=== PATIENT | female | born 1995 | race African-American/Black ===

== ENCOUNTER 2016-10-11 02:05 | Emergency (ER) | payer OTHER ==
[2016-10-11] MEDS ORDERED: NS 1000 ML 1,000 ML ONE (02:16)
[2016-10-11 02:17] VITALS: BP 109/80; BMI 23.0
[2016-10-11] MEDS ORDERED: TETRACAINE HCL ONE (02:17)
[2016-10-11] MEDS ORDERED: FUL-GLO STRIP ONE (02:50)
[2016-10-11] MEDS ORDERED: GENTAMICIN SULF (OPHTH) ONE (03:01)
--- NOTE | 2016-10-11 03:18 | DR.GENAD ---
HPI - PCP Primary Care Physician: nfd - HPI Comment HPI Comment: EYE FLUSH WITH TAP WATER BEFORE COMING FOR 45MINS. - Complaint/Symptoms Chief Complaint Doctors Comments: [employer] WENT INTO LEFT EYE AT WORK. SEVERE PAIN LEFT EYE. Chief Complaint:: was at work and got 2 different types of chemical in her eye. they did flush her eyes with water - Nurses notes reviewed Nurses Notes Review: Yes - Source History Provided: Patient - Mode of Arrival Mode of Arrival: Ambulatory - Timing Onset of Chief Complaint: 10/11/16 Came on: Suddenly - Duration Duration: Constant Duration: Hours - Severity Severity: Moderate PMH - PMH Past Medical History: No Past Medical History: Migraines Past Surgical History: No Surgical History: - Family History History of Family Medical Conditions: No Family Medical History: Hypertension - Social History Does patient currently use any type of tobacco product: Yes Have you used tobacco products in the last 12 months: Yes Type of Tobacco Use: Cigarettes How many years tobacco product used: 1 Does any household member use tobacco: No Alcohol Use: None Do you use any recreational Drugs:: No Lives With: Family Lives Where: Home - infectious screening In the last 2 months have you had wt loss of >10#?: NO Have you had fever, night sweats or hemotysis?: No Have you traveled outside the country in the last 6 months?: No Isolation: Standard ROS - Review of Systems Constitutional: No Symptoms Reported Eyes: Eye Pain, Blurred Vision, Tearing, Photophobia ENTM: No Symptoms Reported Respiratoy: No Symptoms Reported Cardiovascular: No Symptoms Reported Gastrointestinal/Abdominal: No Symptoms Reported Genitourinary: No Symptoms Reported Neurological: No Symptoms Reported Musculoskeletal: No Symptoms Reported Integumentary: No Symptoms Reported Hematologic/Lymphatic: No Symptoms Reported Endocrine: No Symptoms Reported All Other Systems: Reviewed and Negative PE - Vital Signs Vitals: Pulse Rate 85 Respiratory Rate 16 Blood Pressure [Left Arm] 117/71 Blood Pressure 109/80 O2 Sat by Pulse Oximetry 100 - General Limitations: No Limitations General Appearance: Alert - Head Head Exam: Normal Inspection - Eyes Eye exam: PERRL (AFTER TETRACAINE), EOMI (AFTER TETRACAINE), Conjunctival Injection. negative: Scleral Icterus, Nystagmus - ENT ENT Exam: Normal External Ear Exam External Ear Exam: Normal External Inspection Throat Exam: Normal Inspection - Neck Neck Exam: Trachea Midline - Chest Chest Inspection: Symmetric Chest Wall Rise - Respiratory Respiratory Exam: Bilateral Clear to Auscultation - Cardiovascular Cardiovascular Exam: Regular Rate, Normal Rhythm, Normal Heart Sounds - Abdominal Exam Abdominal Exam: Normal Inspection - Extremities Extremities Exam: Normal Inspection - Back Back Exam: Normal Inspection - Neurologic Neurological Exam: Alert, Oriented X3 - Psychiatric Psychiatric Exam: Anxious - Skin Skin Exam: Normal Color MDM - Differential Diagnosis Differential Diagnosis: CHEMICAL CONJUNCTIVITIS, CORNEA ABRSION Course - Treatment Treatment: SEE ORDERS. LT EYE IRRIGATED WITH 1 LITER NS THROUGH FRANCOIS MILIND IN ED. FLUORO DYE TEST, NO CORNEA ABRASION. - Education/Counseling Education/Counseling: Patient, Education Educated On: Diagnosis, Needs for Follow Up - Diagnosis Discharge Problem: Pain, eye, left Chemical conjunctivitis Qualifiers: Laterality: left Qualified Code(s): H10.212 - Acute toxic conjunctivitis, left eye - Discharge Plan Condition: Stable Prescriptions: Ibuprofen [MOTRIN TAB 600 MG *] 600 mg PO TID PRN #20 tab PRN Reason: Pain/Inflammation - Follow ups/Referrals Follow ups/Referrals: NFD,None [Primary Care Provider] - 3 days ANDREW CHACKO [STAFF PHYSICIAN] - 3 days - Instructions Instructions: Chemical Conjunctivitis, [id number] Additional Instructions: RETURN TO ED IF WORSE. USE GENTAMICINE OPHTHALMIC DROP ONE DROP 4 TIMES DAILY TILL ALL GONE. FOLLOW UP WITH EYE DOCTOR.
== END 2016-10-11 03:40 | disposition home or self-care (01) ==
LOC: ER 02:05
DX: H10.212 Acute toxic conjunctivitis, left eye (principal); H57.12 Ocular pain, left eye
CPT/HCPCS: 99000; 99282

== ENCOUNTER 2016-11-19 20:30 | Emergency (ER) | payer OTHER ==
[2016-11-19 20:35] VITALS: BP 111/81; BMI 23.0
--- NOTE | 2016-11-19 20:45 | DR.NAUSEAF ---
HPI - Time Seen Time seen: 20:45 - Primary Care Physician Primary Care Physician: YADIRA - HPI Comment HPI Comment: GETTING WORSE. NOT HOLDING DOWN FLUIDS. - Complaints Chief Complaint Doctors Comments: ABDOMINAL PAIN, N/V FOR SEVERAL HOURS. Chief Complaint:: N/V , ABD PAIN SINCE THIS MORNING AROUND 10 - Reviewed Nurses Notes Reviewed: Yes - Source History Provided: Patient - Mode of Arrival Mode of Arrival: Ambulatory - Timing Onset of Chief Complaint: 11/19/16 - Context Onset: Spontaneous Recent: Contact Exposure (SON HAD SIMILAR ILLNESS BEFORE SHE GOT SICK.) : No History of: None - Quality Quality: Bilious - Associated Signs and Symptoms Abdominal Pain Quality: Cramping Abdominal Pain Location: Diffuse Symptoms: Abdominal Pain PMH - PMH Past Medical History: Yes Past Medical History: Migraines Past Surgical History: Yes Surgical History: - Family History History of Family Medical Conditions: Yes Family Medical History: Hypertension - Social History Type of Tobacco Use: Cigarettes Alcohol Use: None Do you use any recreational Drugs:: No Lives With: Family Lives Where: Home - infectious screening Have you traveled outside the country in the last 6 months?: No Isolation: Standard ROS - Review of Systems Constitutional: Weakness, Fatigue, Loss of Appetite. negative: Chills, Fever Eyes: No Symptoms Reported. negative: Eye Pain, Discharge ENTM: No Symptoms Reported. negative: Ear Pain, Nose Discharge, Nose Congestion , Throat Pain Respiratoy: No Symptoms Reported. negative: Productive Cough, Non-Productive Cough, Short of Breath, Wheezing, Hemoptysis Cardiovascular: No Symptoms Reported. negative: Chest Pain Gastrointestinal/Abdominal: Abdominal Pain, Nausea, Vomiting Genitourinary: No Symptoms Reported. negative: Dysuria, Frequency, Hematuria Neurological: Weakness Musculoskeletal: Muscle Pain Integumentary: No Symptoms Reported Hematologic/Lymphatic: No Symptoms Reported Endocrine: No Symptoms Reported All Other Systems: Reviewed and Negative PE - Vital Signs Vitals: Temperature 98.9 F Pulse Rate 85 Respiratory Rate 16 Blood Pressure [Left Arm] 117/71 Blood Pressure 111/81 O2 Sat by Pulse Oximetry 99 - General Limitations: No Limitations General Appearance: Alert - Head Head Exam: Normal Inspection - Eyes Eye exam: Normal Appearance - ENT ENT Exam: Normal External Ear Exam - Neck Neck Exam: Normal Inspection - Chest Chest Inspection: Symmetric Chest Wall Rise - Respiratory Respiratory Exam: Normal Lung Sounds Bilat Respiratory Exam: Bilateral Clear to Auscultation - Cardiovascular Cardiovascular Exam: Regular Rate, Normal Rhythm, Irregular Rhythm - Abdominal Exam Abdominal Exam: Normal Bowel Sounds, Soft, Tenderness Abdominal Tenderness: Diffuse, Moderate - Rectal Rectal Exam: Deferred - : Speculum Exam (Female): Deferred : Bimanual Exam (female): Deferred - Extremities Extremities Exam: Normal Inspection - Back Back Exam: Normal Inspection - Neurologic Neurological Exam: Alert, Oriented X3 - Psychiatric Psychiatric Exam: Normal Affect, Normal Mood - Skin Skin Exam: Normal Color MDM - Differential Diagnosis Differential Diagnosis: Considerations may Include:: Bowel Obstruction, Gastritis, Pancreatitis, PUD, Urinary Tract Infection, Urolithiasis Course - Education/Counseling Education/Counseling: Patient, Education Educated On: Diagnosis, Needs for Follow Up ROR - Labs Reviewed Laboratory Results Reviewed?: Yes Result Diagrams: 11/19/16 21:02 11/19/16 21:02 Laboratory: WBC 7.8 X10^3/uL (3.6-10.0) 11/19/16 21:02 RBC 4.43 X10^6/uL (3.5-5.4) 11/19/16 21:02 Hgb 11.8 g/dL (12.0-16.0) L 11/19/16 21:02 Hct 36.5 % (36.0-47.0) 11/19/16 21:02 MCV 82.4 fL (80.0-100.0) 11/19/16 21:02 MCH 26.6 pg (27.0-34.0) L 11/19/16 21:02 MCHC 32.3 g/dL (33.0-35.0) L 11/19/16 21:02 RDW 15.4 % (11.6-16.5) 11/19/16 21:02 Plt Count 303 X10^3/uL (150.0-450.0) 11/19/16 21:02 MPV 8.0 fL (7.4-11.0) 11/19/16 21:02 Neut % 53.2 % (42.0-75.0) 11/19/16 21:02 Lymph % 35.6 % (21.0-51.0) 11/19/16 21:02 Wright % 9.0 % (0.0-13.0) 11/19/16 21:02 Eos % 1.5 % (0.9-2.9) 11/19/16 21:02 Baso % 0.7 % (0.2-1.0) 11/19/16 21:02 Neut # 4.2 x10^3/uL (2.2-4.8) 11/19/16 21:02 Lymph # 2.8 X10^3/uL (1.3-2.9) 11/19/16 21:02 Wright # 0.7 x10^3/uL (0.3-0.8) 11/19/16 21:02 Eos # 0.1 x10^3/uL (0.0-0.2) 11/19/16 21:02 Baso # 0.1 X10^3/uL (0.0-0.1) 11/19/16 21:02 Absolute Nucleated RBC 0.0 /100WBC 11/19/16 21:02 Sodium 143 mmol/L (136-145) 11/19/16 21:02 Corrected Sodium TNP 11/19/16 21:02 Potassium 4.3 mmol/L (3.5-5.1) 11/19/16 21:02 Chloride 108 mmol/L (98-107) H 11/19/16 21:02 Carbon Dioxide 25.7 mmol/L (21-32) 11/19/16 21:02 BUN 10 mg/dL (7-18) 11/19/16 21:02 Creatinine 0.94 mg/dL (0.55-1.02) 11/19/16 21:02 Est GFR (MDRD) Af Amer > 60 (>60) 11/19/16 21:02 Est GFR (MDRD) Non-Af > 60 (>60) 11/19/16 21:02 Glucose 86 mg/dL (65-99) 11/19/16 21:02 Calcium 9.2 mg/dL (8.5-10.1) 11/19/16 21:02 Corrected Calcium TNP 11/19/16 21:02 Total Bilirubin 0.20 mg/dL (0.2-1.0) 11/19/16 21:02 AST 17 Units/L (15-37) 11/19/16 21:02 ALT 20 Units/L (12-78) 11/19/16 21:02 Alkaline Phosphatase 51 Units/L (46-116) 11/19/16 21:02 Total Protein 8.2 g/dL (6.4-8.2) 11/19/16 21: Albumin 3.7 g/dL (3.4-5.0) 11/19/16 21: Globulin 4.5 g/dL (2.5-4.5) 11/19/16 21:02 Albumin/Globulin Ratio 0.8 Ratio (1.1-2.1) L 11/19/16 21:02 Amylase 72 Units/L (25-115) 11/19/16 21:02 Lipase 72 Units/L (73-393) L 11/19/16 21:02 Specimen Type Clean catch urine 11/19/16 21:01 Urine Color Yellow (YELLOW) 11/19/16 21:01 Urine Appearance Cloudy (CLEAR) 11/19/16 21:01 Urine pH 7.0 (5.0 - 8.0) 11/19/16 21:01 Ur Specific [place] 1.015 (1.000-1.030) 11/19/16 21:01 Urine Protein Negative (NEGATIVE) 11/19/16 21:01 Urine Glucose (UA) Negative (NEGATIVE) 11/19/16 21: Urine Ketones Negative (NEGATIVE) 11/19/16 21:01 Urine Occult Blood Negative (NEGATIVE) 11/19/16 21:01 Urine Nitrite Negative (NEGATIVE) 11/19/16 21:01 Urine Bilirubin Negative (NEGATIVE) 11/19/16 21:01 Urine Urobilinogen 1+ (NORMAL) 11/19/16 21:01 Ur Leukocyte Esterase 1+ (NEGATIVE) 11/19/16 21:01 Urine RBC Rare /HPF (NEGATIVE) 11/19/16 21:01 Urine WBC 0-4 /HPF (NEGATIVE) 11/19/16 21:01 Ur Squamous Epith Cells Few /HPF (NEGATIVE) 11/19/16 21:01 Amorphous Sediment 3+ /HPF (NEGATIVE) 11/19/16 21:01 Urine Bacteria Trace /HPF (NEGATIVE) 11/19/16 21:01 Ur Culture Indicated? No/not indicated 11/19/16 21:01 - Diagnosis Discharge Problem: Nausea and vomiting in adult patient, Gastroenteritis - Discharge Plan Condition: Stable Prescriptions: Dicyclomine HCl [Bentyl tab 20 mg] 20 mg PO TID PRN #15 tab PRN Reason: Diphenoxylate/Atropine [Lomotil] 1 tab PO TID PRN #15 tab PRN Reason: Ondansetron HCl [Zofran Tab 4 mg] 4 mg PO Q8H PRN #12 tab PRN Reason: Nausea/Vomiting - Follow ups/Referrals Follow ups/Referrals: NFD,None [Primary Care Provider] - 2 days - Instructions Instructions: Viral Gastroenteritis, Adult, [id number], Nausea and Vomiting, Adult, [id number], Diarrhea, Adult, [id number]
[2016-11-19 21:08] LABS: BASOPHILS # (AUTO) 0.1 X10^3/uL (0.0-0.1); BASOPHILS % (AUTO) 0.7 % (0.2-1.0); EOSINOPHILS # (AUTO) 0.1 x10^3/uL (0.0-0.2); EOSINOPHILS % (AUTO) 1.5 % (0.9-2.9); HEMATOCRIT 36.5 % (36.0-47.0); HEMOGLOBIN 11.8 g/dL (12.0-16.0); LYMPHOCYTES # (AUTO) 2.8 X10^3/uL (1.3-2.9); LYMPHOCYTES % (AUTO) 35.6 % (21.0-51.0); MEAN CORPUSCULAR HEMOGLOBIN 26.6 pg (27.0-34.0); MEAN CORPUSCULAR HGB CONC 32.3 g/dL (33.0-35.0); MEAN CORPUSCULAR VOLUME 82.4 fL (80.0-100.0); MONOCYTES # (AUTO) 0.7 x10^3/uL (0.3-0.8); NEUTROPHILS # (AUTO) 4.2 x10^3/uL (2.2-4.8); NEUTROPHILS % (AUTO) 53.2 % (42.0-75.0); PLATELET COUNT 303 X10^3/uL (150.0-450.0); RED BLOOD COUNT 4.43 X10^6/uL (3.5-5.4); RED CELL DISTRIBUTION WIDTH 15.4 % (11.6-16.5); WHITE BLOOD COUNT 7.8 X10^3/uL (3.6-10.0)
[2016-11-19 21:10] LABS: BILIRUBIN,URINE NEGATIVE (NEGATIVE); BLOOD/HEMOGLOBIN,URINE NEGATIVE (NEGATIVE); GLUCOSE, URINE NEGATIVE (NEGATIVE); KETONES,URINE NEGATIVE (NEGATIVE); LEUKOCYTE ESTERASE ,URINE 1+ (NEGATIVE); NITRITES,URINE NEGATIVE (NEGATIVE); PROTEIN,URINE NEGATIVE (NEGATIVE); UROBILINOGEN,URINE 1+ (NORMAL)
[2016-11-19 21:19] LABS: ALANINE AMINOTRANSFERASE 20 Units/L (12-78); ALBUMIN 3.7 g/dL (3.4-5.0); ALKALINE PHOSPHATASE 51 Units/L (46-116); AMYLASE 72 Units/L (25-115); ASPARTATE AMINO TRANSFERASE 17 Units/L (15-37); BLOOD UREA NITROGEN 10 mg/dL (7-18); CALCIUM 9.2 mg/dL (8.5-10.1); CARBON DIOXIDE 25.7 mmol/L (21-32); CHLORIDE 108 mmol/L (98-107); CREATININE 0.94 mg/dL (0.55-1.02); GLUCOSE 86 mg/dL (65-99); LIPASE 72 Units/L (73-393); SODIUM 143 mmol/L (136-145); TOTAL PROTEIN 8.2 g/dL (6.4-8.2); eGFR BLACK RACES > 60 (>60); eGFR NON BLACK RACES > 60 (>60)
[2016-11-19 21:24] LABS: AMORPHOUS SEDIMENT,UR 3+ /HPF (NEGATIVE); APPEARANCE,URINE CLOUDY (CLEAR); BACTERIA,URINE TRACE /HPF (NEGATIVE); COLOR,URINE YELLOW (YELLOW); RBC,URINE RARE /HPF (NEGATIVE); SQUAMOUS EPITHELIAL CELL,UR FEW /HPF (NEGATIVE)
== END 2016-11-19 22:03 | disposition home or self-care (01) ==
LOC: ER 20:40
DX: K52.89 Other specified noninfective gastroenteritis and colitis (principal); R11.2 Nausea with vomiting, unspecified; R19.7 Diarrhea, unspecified
CPT/HCPCS: 36415; 80053; 81001; 82150; 83690; 85025; 99282

== ENCOUNTER 2017-01-15 17:39 | Emergency (ER) | payer SELFPAY ==
[2017-01-15 17:42] VITALS: BP 117/89; BMI 22.3
--- NOTE | 2017-01-15 19:20 | RAD ---
Left foot, three views Indication: 5th toe pain, dorsal foot pain. No known trauma. Findings: No cortical disruption or malalignment is identified. The joint spaces are intact. No sign ificant soft tissue abnormality identified. Impression: Negative exam. Reported By:
--- NOTE | 2017-01-15 20:28 | DR.GENAD ---
HPI - PCP Primary Care Physician: MAUDE VASQUEZ - Complaint/Symptoms Chief Complaint Doctors Comments: L foot pain for 1-2 weeks Chief Complaint:: THINK I BROKE MY LITTLE TOE ON LEFT FOOT Self Treatment fo Chief Complaint: NONE - Nurses notes reviewed Nurses Notes Review: Yes - Source History Provided: Patient - Mode of Arrival Mode of Arrival: Ambulatory - Timing Onset of Chief Complaint: 01/11/17 - Duration Duration: Intermittent - Severity Severity: Moderate PMH - PMH Past Medical History: No Past Medical History: Migraines Past Surgical History: No Surgical History: - Family History History of Family Medical Conditions: Yes Family Medical History: Hypertension - Social History Alcohol Use: None Do you use any recreational Drugs:: No Lives With: Family Lives Where: Home - infectious screening In the last 2 months have you had wt loss of >10#?: NO Have you had fever, night sweats or hemotysis?: No Have you traveled outside the country in the last 6 months?: No Isolation: Standard ROS - Review of Systems Constitutional: No Symptoms Reported Respiratoy: No Symptoms Reported Cardiovascular: No Symptoms Reported Musculoskeletal: Left, Foot (pain) Integumentary: No Symptoms Reported PE - Vital Signs Vitals: Temperature 98.6 F Pulse Rate 84 Respiratory Rate 20 Blood Pressure [Left Arm] 117/71 Blood Pressure 117/89 O2 Sat by Pulse Oximetry 99 - General Limitations: No Limitations General Appearance: Alert, In No Apparent Distress - Neurologic Neurological Exam: Alert, Oriented X3, CN II-XII Intact - Psychiatric Psychiatric Exam: Normal Affect, Normal Mood - Skin Skin Exam: Warm, Dry, Intact, Normal Color - Other Exam Other Exam: L foot with mild dorsal swelling and mild TTP (deep), skin intact and no erythema - Diagnosis Discharge Problem: Foot pain, left - Discharge Plan Disposition: HOME, SELF-CARE Condition: Stable - Follow ups/Referrals Follow ups/Referrals: NFD,None [Primary Care Provider] - 3 days - Instructions
[2017-01-15] MEDS ORDERED: TORADOL 60 MG VIAL IM ONE (20:34)
[2017-01-15] MEDS ORDERED: TORADOL 60 MG VIAL ONE (20:35)
== END 2017-01-15 20:45 | disposition home or self-care (01) ==
LOC: ER 17:46
DX: M79.672 Pain in left foot (principal)
CPT/HCPCS: 73630; 96372; 99282; J1885

== ENCOUNTER 2017-01-18 09:47 | Emergency (ER) | payer SELFPAY ==
[2017-01-18 09:51] VITALS: BP 114/81; BMI 23.0
--- NOTE | 2017-01-18 10:27 | DR.GENAD ---
HPI - PCP Primary Care Physician: nfd - Complaint/Symptoms Chief Complaint Doctors Comments: Pateint states that she injured her left foot one week prior to being seen on of last week. She states that she thought the foot would get better but started to swell on last. No history of direct trauma. Chief Complaint:: patient was seen in the er and she stated she still cant hardly walk and her right foot is swollen more today. - Source History Provided: Patient - Mode of Arrival Mode of Arrival: Ambulatory - Timing Onset of Chief Complaint: 01/14/17 PMH - PMH Past Medical History: Yes Past Medical History: Migraines Past Surgical History: No Surgical History: - Family History History of Family Medical Conditions: Yes Family Medical History: Hypertension - Social History Does patient currently use any type of tobacco product: No Have you used tobacco products in the last 12 months: No Type of Tobacco Use: None Does any household member use tobacco: No Alcohol Use: None Do you use any recreational Drugs:: No Lives With: Family Lives Where: Home - infectious screening In the last 2 months have you had wt loss of >10#?: NO Have you had fever, night sweats or hemotysis?: No Have you traveled outside the country in the last 6 months?: No Isolation: Standard ROS - Review of Systems Eyes: No Symptoms Reported ENTM: No Symptoms Reported Respiratoy: No Symptoms Reported Cardiovascular: No Symptoms Reported Gastrointestinal/Abdominal: No Symptoms Reported Genitourinary: No Symptoms Reported Neurological: No Symptoms Reported Musculoskeletal: Foot (left is swollen metatarsals) Integumentary: No Symptoms Reported Hematologic/Lymphatic: No Symptoms Reported Endocrine: No Symptoms Reported Psychiatric: No Symptoms Reported All Other Systems: Reviewed and Negative PE - Vital Signs Vitals: Temperature 98.6 F Pulse Rate 86 Respiratory Rate 16 Blood Pressure [Left Arm] 117/71 Blood Pressure 114/81 O2 Sat by Pulse Oximetry 100 - General General Appearance: Alert, In No Apparent Distress - Head Head Exam: Normal Inspection, Atraumatic - Eyes Eye exam: Normal Appearance, PERRL, EOMI - ENT ENT Exam: Normal Exam External Ear Exam: Normal External Inspection TM/Canal Exam: Bilateral Normal Nose Exam: Normal Nose Exam Mouth Exam: Normal Inspection Throat Exam: Normal Inspection - Neck Neck Exam: Normal Inspection - Chest Chest Inspection: Normal Inspection - Respiratory Respiratory Exam: Normal Lung Sounds Bilat Respiratory Exam: Bilateral Clear to Auscultation - Cardiovascular Cardiovascular Exam: Regular Rate, Normal Rhythm - Abdominal Exam Abdominal Exam: Normal Inspection Abdominal Tenderness: negative: RUQ, RLQ, LUQ, LLQ, Epigastrium, Suprapubic, Diffuse, Mild, Moderate, Severe, Other - Extremities Extremities Exam: Other (swollen left foot dorsum, no erythema, warm to touch) - Back Back Exam: Normal Inspection - Neurologic Neurological Exam: Alert, Oriented X3, CN II-XII Intact - Psychiatric Psychiatric Exam: Normal Affect - Skin Skin Exam: Warm, Dry, Intact ROR - XRAY XRAY Interpreted by: Self (negative for fracture) - Diagnosis Discharge Problem: Edema of left foot - Discharge Plan Condition: Stable - Follow ups/Referrals Follow ups/Referrals: NFD,None [Primary Care Provider] - 3 days - Instructions
[2017-01-18] MEDS ORDERED: TORADOL 30 MG VIAL IM ONE (10:30)
[2017-01-18] MEDS ORDERED: TORADOL 30 MG VIAL ONE (10:51)
--- NOTE | 2017-01-18 12:21 | RAD ---
Three-view left foot series: Indication: Left foot swelling, inability to walk. Comparison: Left foot series dated January 15, 2017. Findings/impression: Alignment is anatomic without acute skeletal abnormality or arthropathy. The so ft tissues are unremarkable. Reported By:
== END 2017-01-18 12:33 | disposition home or self-care (01) ==
LOC: ER 09:53
DX: R60.0 Localized edema (principal)
CPT/HCPCS: 73630; 96372; 99282; J1885

== ENCOUNTER 2020-04-09 11:52 | Inpatient (IN) ==
[2020-04-09 11:59] VITALS: BMI 29.5
[2020-04-09 12:25] LABS: BILIRUBIN,URINE NEGATIVE (NEGATIVE); BLOOD/HEMOGLOBIN,URINE NEGATIVE (NEGATIVE); GLUCOSE, URINE NEGATIVE (NEGATIVE); KETONES,URINE NEGATIVE (NEGATIVE); LEUKOCYTE ESTERASE ,URINE NEGATIVE (NEGATIVE); NITRITES,URINE NEGATIVE (NEGATIVE); PROTEIN,URINE NEGATIVE (NEGATIVE); UROBILINOGEN,URINE 2+ (NORMAL)
[2020-04-09 12:36] LABS: APPEARANCE,URINE HAZY (CLEAR); BACTERIA,URINE TRACE /HPF (NEGATIVE); COLOR,URINE YELLOW (YELLOW); RBC,URINE 0-2 /HPF (0-3); SQUAMOUS EPITHELIAL CELL,UR FEW /HPF (NEGATIVE)
[2020-04-09 12:37] LABS: AMORPHOUS SEDIMENT,UR 1+ /HPF (NEGATIVE)
[2020-04-09 13:30] LABS: BASOPHILS % (AUTO) 0.4 % (0.2-1.0); EOSINOPHILS # (AUTO) 0.1 x10^3/uL (0.0-0.2); EOSINOPHILS % (AUTO) 0.9 % (0.9-2.9); HEMATOCRIT 28.1 % (36.0-47.0); LYMPHOCYTES # (AUTO) 1.8 X10^3/uL (1.3-2.9); LYMPHOCYTES % (AUTO) 18.1 % (21.0-51.0); MEAN CORPUSCULAR HEMOGLOBIN 25.8 pg (27.0-34.0); MEAN CORPUSCULAR VOLUME 80.7 fL (80.0-100.0); MEAN PLATELET VOLUME 8.3 fL (7.4-11.0); MONOCYTES % (AUTO) 9.6 % (0.0-13.0); NEUTROPHILS # (AUTO) 7.2 x10^3/uL (2.2-4.8); PLATELET COUNT 329 X10^3/uL (150.0-450.0); RED BLOOD COUNT 3.48 X10^6/uL (3.5-5.4); RED CELL DISTRIBUTION WIDTH 14.9 % (11.6-16.5); WHITE BLOOD COUNT 10.1 X10^3/uL (3.6-10.0)
[2020-04-09 13:42] LABS: ALANINE AMINOTRANSFERASE 12 Units/L (12-78); ALBUMIN 2.5 g/dL (3.4-5.0); ALKALINE PHOSPHATASE 70 Units/L (46-116); ASPARTATE AMINO TRANSFERASE 14 Units/L (15-37); BLOOD UREA NITROGEN 6 mg/dL (7-18); CALCIUM 9.1 mg/dL (8.5-10.1); CARBON DIOXIDE 23.5 mmol/L (21-32); CHLORIDE 104 mmol/L (98-107); COR CA(FOR HYPOALB) 10.3 mg/dL (8.5-10.1); CREATININE 0.71 mg/dL (0.55-1.02); SODIUM 138 mmol/L (136-145); TOTAL PROTEIN 7.3 g/dL (6.4-8.2); eGFR NON BLACK RACES > 60 (>60)
[2020-04-09 13:49] LABS: PLATELET MORPHOLOGY COMMENT NORMAL (NORMAL)
[2020-04-09] MEDS ORDERED: ZOFRAN INJ 4 MG VIAL ONE (17:37)
[2020-04-09] MEDS ORDERED: EPHEDRINE SULFATE INJ ONE (17:37)
[2020-04-09] MEDS ORDERED: DIPRIVAN VIAL ONE (17:37)
[2020-04-09] MEDS ORDERED: LR 1000 ML IV 1,000 ML IV ONE ×2 (17:37→17:51)
[2020-04-09] MEDS ORDERED: REGLAN INJ 10 MG VIAL ONE (17:37)
[2020-04-09] MEDS ORDERED: PITOCIN ONE (17:37)
[2020-04-09] MEDS ORDERED: VERSED ONE (17:37)
[2020-04-09] MEDS ORDERED: MARCAINE SPINAL ONE (17:37)
[2020-04-09] MEDS ORDERED: ANCEF 1 GRAM IV PREMIX* 1 G/50 ML BAG IV ONE (17:38)
[2020-04-09] MEDS ORDERED: XYLOCAINE 1 % (PLAIN) ONE (17:51)
[2020-04-09] MEDS ORDERED: DILAUDID INJ ONE (17:51)
[2020-04-09] MEDS ORDERED: ANCEF VIAL 1 GRAM IVP ONE (17:54)
[2020-04-09] MEDS ORDERED: D5 1/2 NS 1L W PITOCIN 20 UNITS/L 20 UNITS/1,000 ML BAG IV ONE (18:33)
[2020-04-09] MEDS ORDERED: KETALAR ONE (19:01)
[2020-04-09] MEDS ORDERED: BENADRYL INJ 50 MG VIAL IVP PRN ×2 (19:37→20:14)
[2020-04-09] MEDS ORDERED: REGLAN INJ 10 MG VIAL IVP PRN ×2 (19:37→20:14)
[2020-04-09] MEDS ORDERED: PHENERGAN INJ 25 MG IM PRN (19:37)
[2020-04-09] MEDS ORDERED: ZOFRAN INJ 4 MG VIAL IVP PRN ×2 (19:37→20:14)
[2020-04-09] MEDS ORDERED: TORADOL 30 MG VIAL IVP PRN (20:14)
[2020-04-09] MEDS ORDERED: D5 1/2 NS 1000 ML 1,000 ML with PITOCIN 20 UNITS IV SCH ×2 (20:14)
[2020-04-09] MEDS ORDERED: NARCAN INJ IVP PRN (20:14)
[2020-04-09] MEDS ORDERED: MYLICON TAB 80 MG CHEW PO PRN (20:14)
[2020-04-09] MEDS ORDERED: ADACEL or BOOSTRIX TDaP VACCINE IM ONE (20:14)
[2020-04-09] MEDS ORDERED: PERCOCET TAB 5/325 MG PO PRN (20:14)
[2020-04-10 05:14] LABS: HEMATOCRIT 24.7 % (36.0-47.0); HEMOGLOBIN 7.9 g/dL (12.0-16.0)
[2020-04-10] MEDS ORDERED: PERCOCET TAB 5/325 MG PO PRN (07:28)
[2020-04-10] MEDS: COLACE CAP 100 MG PO SCH ×2 (08:58→20:50)
[2020-04-10] MEDS: PROTONIX TAB 40 MG PO SCH (08:58)
[2020-04-10] MEDS: MOTRIN TAB 800 MG PO PRN ×2 (08:58→20:54)
[2020-04-10] MEDS: PRENATAL PLUS PO SCH (08:58)
[2020-04-10] MEDS: BACTROBAN TOPICAL OINT TOP SCH ×2 (14:46→21:10)
[2020-04-10] MEDS: FERROUS GLUCONATE PO SCH (17:13)
[2020-04-11] MEDS: BACTROBAN TOPICAL OINT TOP SCH (05:12)
[2020-04-11] MEDS: FERROUS GLUCONATE PO SCH (06:05)
[2020-04-11 08:07] VITALS: BP 143/82
[2020-04-11] MEDS: PRENATAL PLUS PO SCH (08:14)
[2020-04-11] MEDS: COLACE CAP 100 MG PO SCH (08:14)
[2020-04-11] MEDS: PROTONIX TAB 40 MG PO SCH (08:15)
== END 2020-04-11 11:43 | disposition home or self-care (01) | DRG 787 ==
LOC: ER 11:57 → LD 17:37 → MED/SURG 19:54
PROVIDERS: ADMIT Specialist; ATTEND Specialist
DX: O34.211 Maternal care for low transverse scar from previous cesarean delivery; O99.613 Diseases of the digestive system complicating pregnancy, third trimester; D50.8 Other iron deficiency anemias; Z37.0 Single live birth; Z3A.38 38 weeks gestation of pregnancy; N85.8 Other specified noninflammatory disorders of uterus; O41.03X0 Oligohydramnios, third trimester, not applicable or unspecified; O99.824 Streptococcus B carrier state complicating childbirth; O99.013 Anemia complicating pregnancy, third trimester; B95.1 Streptococcus, group B, as the cause of diseases classified elsewhere

== ENCOUNTER 2023-11-22 08:16 | Inpatient (IN) ==
[2023-11-22 08:41] VITALS: BMI 29.2
[2023-11-22 08:46] LABS: BILIRUBIN,URINE NEGATIVE (NEGATIVE); BLOOD/HEMOGLOBIN,URINE 3+ (NEGATIVE); GLUCOSE, URINE NEGATIVE (NEGATIVE); KETONES,URINE NEGATIVE (NEGATIVE); LEUKOCYTE ESTERASE ,URINE NEGATIVE (NEGATIVE); NITRITES,URINE NEGATIVE (NEGATIVE); PROTEIN,URINE 1+ (NEGATIVE); UROBILINOGEN,URINE 1+ (NORMAL)
[2023-11-22 08:49] LABS: AMNISURE ROM TEST THERE IS A RUPTURE (NO RUPTURE)
[2023-11-22 08:50] LABS: APPEARANCE,URINE SLIGHTLY HAZY (CLEAR); COLOR,URINE YELLOW (YELLOW)
[2023-11-22 08:58] LABS: BACTERIA,URINE 1+ /HPF (NEGATIVE); SQUAMOUS EPITHELIAL CELL,UR NUMEROUS /HPF (NEGATIVE)
[2023-11-22 09:20] LABS: HEMOGLOBIN 10.2 g/dL (12.0-16.0); MEAN CORPUSCULAR VOLUME 86.4 fL (80.0-100.0); MEAN PLATELET VOLUME 9.4 fL (7.4-11.0); RED CELL DISTRIBUTION WIDTH 13.4 % (11.6-16.5)
[2023-11-22 09:24] LABS: BASOPHILS # (AUTO) 0.1 X10^3/uL (0.0-0.1); BASOPHILS % (AUTO) 0.5 % (0.2-1.0); EOSINOPHILS # (AUTO) 0.1 x10^3/uL (0.0-0.2); EOSINOPHILS % (AUTO) 1.1 % (0.9-2.9); HEMATOCRIT 30.9 % (36.0-47.0); LYMPHOCYTES # (AUTO) 2.6 X10^3/uL (1.3-2.9); LYMPHOCYTES % (AUTO) 26.7 % (21.0-51.0); MEAN CORPUSCULAR HEMOGLOBIN 28.4 pg (27.0-34.0); MEAN CORPUSCULAR HGB CONC 32.9 g/dL (33.0-35.0); MONOCYTES % (AUTO) 10.1 % (0.0-13.0); NEUTROPHILS % (AUTO) 61.6 % (42.0-75.0); PLATELET COUNT 256 X10^3/uL (150.0-450.0); RED BLOOD COUNT 3.58 X10^6/uL (3.5-5.4); WHITE BLOOD COUNT 9.7 X10^3/uL (3.6-10.0)
[2023-11-22] MEDS ORDERED: STERILE WATER IRRIGATION IR ONE (09:30)
[2023-11-22 09:34] LABS: BLOOD UREA NITROGEN 4 mg/dL (7-18); CALCIUM 8.6 mg/dL (8.5-10.1); CARBON DIOXIDE 21.2 mmol/L (21-32); CHLORIDE 105 mmol/L (98-107); CREATININE 0.66 mg/dL (0.55-1.02); GLUCOSE 102 mg/dL (65-99); POTASSIUM 3.7 mmol/L (3.5-5.1); SODIUM 138 mmol/L (136-145); eGFR NON BLACK RACES > 60 (>60)
[2023-11-22 09:35] LABS: RAPID PLASMA REAGIN NONREACTIVE (NONREACTIVE)
[2023-11-22] MEDS: ANCEF VIAL 1 GRAM IVP ONE (09:52)
[2023-11-22] MEDS: LR 1,000 ML IV 1,000 ML IV ONE ×2 (09:52→10:13)
[2023-11-22] MEDS: NS 100 ML IV 100 ML ONE (09:56)
[2023-11-22] MEDS: REGLAN INJ 10 MG VIAL ONE (09:58)
[2023-11-22] MEDS: ZOFRAN INJ 4 MG VIAL ONE (09:58)
[2023-11-22] MEDS: PEPCID 20 MG VIAL ONE (09:58)
[2023-11-22] MEDS: NOZIN NASAL SANITIZER TP ONE (10:00)
[2023-11-22] MEDS: XYLOCAINE 2 % (PLAIN) ONE (10:06)
[2023-11-22] MEDS: DIPRIVAN VIAL 20 ML ONE ×2 (10:06→11:44)
[2023-11-22] MEDS: DILAUDID INJ ONE (10:06)
[2023-11-22] MEDS: MARCAINE SPINAL ONE (10:06)
[2023-11-22] MEDS ORDERED: BENADRYL INJ 50 MG VIAL IVP PRN ×2 (10:21→12:48)
[2023-11-22] MEDS ORDERED: ZOFRAN INJ 4 MG VIAL IVP PRN (10:21)
[2023-11-22] MEDS ORDERED: BARHEMSYS INJ IVP PRN (10:21)
[2023-11-22] MEDS ORDERED: REGLAN INJ 10 MG VIAL IVP PRN ×2 (10:21→12:48)
[2023-11-22] MEDS: KETAMINE 50 MG/5 ML-NACL SYRNG ONE (11:30)
[2023-11-22] MEDS ORDERED: MYLICON TAB 80 MG CHEW PO PRN (12:48)
[2023-11-22] MEDS ORDERED: NARCAN INJ IVP PRN (12:48)
[2023-11-22] MEDS ORDERED: TORADOL 30 MG VIAL IVP PRN (12:48)
[2023-11-22] MEDS ORDERED: PERCOCET TAB 5/325 MG PO PRN (12:48)
[2023-11-22] MEDS ORDERED: D5 1/2 NS 1,000 ML 1,000 ML with PITOCIN 20 UNITS IV SCH (13:00)
[2023-11-22] MEDS: ZOFRAN INJ 4 MG VIAL IVP PRN (16:32)
[2023-11-22] MEDS: ADACEL or BOOSTRIX TDaP VACCINE IM ONE (17:00)
[2023-11-22] MEDS ORDERED: PHENERGAN INJ 25 MG IM PRN (18:18)
[2023-11-22] MEDS: PITOCIN ONE (19:09)
[2023-11-23 04:50] LABS: HEMATOCRIT 21.8 % (36.0-47.0)
[2023-11-23 05:14] LABS: HEMOGLOBIN 7.1 g/dL (12.0-16.0)
[2023-11-23] MEDS ORDERED: MOTRIN TAB 800 MG PO PRN (08:08)
[2023-11-23] MEDS: PRENATAL PLUS PO SCH (08:33)
[2023-11-23] MEDS: COLACE CAP 100 MG PO SCH (08:33)
[2023-11-23] MEDS: PERCOCET TAB 5/325 MG PO PRN (11:25)
[2023-11-23] MEDS: BACTROBAN TOPICAL OINT TOP SCH (13:16)
[2023-11-23] MEDS: FERROUS GLUCONATE PO SCH (16:29)
[2023-11-24] MEDS: DEPO-PROVERA CONTRACEPTIVE INJ IM ONE (06:38)
[2023-11-24 12:26] VITALS: BP 127/79; PULSE 107; RESP 34; TEMP 98; O2SAT 97
== END 2023-11-24 12:15 | disposition home or self-care (01) | DRG 788 ==
LOC: ER 08:16 → LD 09:35 → MED/SURG 12:49
PROVIDERS: ADMIT Specialist; ATTEND Specialist
DX: N85.8 Other specified noninflammatory disorders of uterus; Z37.0 Single live birth; O99.513 Diseases of the respiratory system complicating pregnancy, third trimester; O34.211 Maternal care for low transverse scar from previous cesarean delivery; Z3A.37 37 weeks gestation of pregnancy